=== PATIENT | female | born 1965 | race Caucasian/White ===

== ENCOUNTER → 2017-10-18 | Outpatient (CLI) | payer SELFPAY ==
--- NOTE | 2017-10-18 14:01 | RAD ---
Examination: Chest, PA and lateral views History: Preop Findings: Normal heart size, dilated aorta, clear lungs and pleural spaces. Impression: No acute chest disease. Configuration of thoracic aorta consistent with arteriosclerosis and/or hypertension. Reported By:
[2017-10-18 14:27] LABS: BILIRUBIN,URINE NEGATIVE (NEGATIVE); BLOOD/HEMOGLOBIN,URINE NEGATIVE (NEGATIVE); GLUCOSE, URINE NEGATIVE (NEGATIVE); KETONES,URINE NEGATIVE (NEGATIVE); LEUKOCYTE ESTERASE ,URINE 1+ (NEGATIVE); NITRITES,URINE NEGATIVE (NEGATIVE); PROTEIN,URINE NEGATIVE (NEGATIVE); UROBILINOGEN,URINE NORMAL (NORMAL)
[2017-10-18 14:37] LABS: APPEARANCE,URINE CLEAR (CLEAR); COLOR,URINE YELLOW (YELLOW)
[2017-10-18 14:38] LABS: BACTERIA,URINE 1+ /HPF (NEGATIVE); SQUAMOUS EPITHELIAL CELL,UR RARE /HPF (NEGATIVE)
[2017-10-18 14:53] LABS: BASOPHILS % (AUTO) 0.3 % (0.2-1.0); EOSINOPHILS # (AUTO) 0.1 x10^3/uL (0.0-0.2); EOSINOPHILS % (AUTO) 1.7 % (0.9-2.9); HEMATOCRIT 36.7 % (36.0-47.0); HEMOGLOBIN 12.5 g/dL (12.0-16.0); LYMPHOCYTES # (AUTO) 2.3 X10^3/uL (1.3-2.9); LYMPHOCYTES % (AUTO) 33.9 % (21.0-51.0); MEAN CORPUSCULAR HEMOGLOBIN 27.9 pg (27.0-34.0); MEAN CORPUSCULAR HGB CONC 33.9 g/dL (33.0-35.0); MEAN CORPUSCULAR VOLUME 82.4 fL (80.0-100.0); MEAN PLATELET VOLUME 8.9 fL (7.4-11.0); MONOCYTES # (AUTO) 0.7 x10^3/uL (0.3-0.8); MONOCYTES % (AUTO) 10.3 % (0.0-13.0); NEUTROPHILS # (AUTO) 3.7 x10^3/uL (2.2-4.8); NEUTROPHILS % (AUTO) 53.8 % (42.0-75.0); PLATELET COUNT 228 X10^3/uL (150.0-450.0); RED BLOOD COUNT 4.46 X10^6/uL (3.5-5.4); WHITE BLOOD COUNT 6.9 X10^3/uL (3.6-10.0)
[2017-10-18 15:00] LABS: ALANINE AMINOTRANSFERASE 25 Units/L (12-78); ALBUMIN 4.1 g/dL (3.4-5.0); ALKALINE PHOSPHATASE 92 Units/L (46-116); ASPARTATE AMINO TRANSFERASE 18 Units/L (15-37); BLOOD UREA NITROGEN 8 mg/dL (7-18); CALCIUM 8.8 mg/dL (8.5-10.1); CARBON DIOXIDE 30.6 mmol/L (21-32); CHLORIDE 104 mmol/L (98-107); SODIUM 141 mmol/L (136-145); TOTAL PROTEIN 7.8 g/dL (6.4-8.2); eGFR BLACK RACES > 60 (>60); eGFR NON BLACK RACES > 60 (>60)
[2017-10-18 15:45] LABS: ERYTHROCYTE SEDIMENTATION RATE 16 MM/HOUR (0-20)
== END ==
LOC: LAB 13:18
PROVIDERS: ATTEND Orthopaedic Surgery
DX: Z01.818 Encounter for other preprocedural examination (principal); Z79.899 Other long term (current) drug therapy; Z11.8 Encounter for screening for other infectious and parasitic diseases; Z01.811 Encounter for preprocedural respiratory examination; Z01.810 Encounter for preprocedural cardiovascular examination; D18.00 Hemangioma unspecified site
CPT/HCPCS: 36415; 71020; 80053; 81001; 85025; 85652; 86140; 87640; 87641; 93005; 93010

== ENCOUNTER 2017-10-22 07:48 | Day surgery (SDC) | payer SELFPAY ==
[~2017-10-22 07:48] MED LIST: ANCEF VIAL 1 GM ONE; D5 LR 1000 ML 1,000 ML IV ONE
[2017-10-22] MEDS ORDERED: MARCAINE 0.25% INJ ONE (08:14)
[2017-10-22] MEDS ORDERED: XYLOCAINE 1 % (PLAIN) ONE (08:14)
[2017-10-22] MEDS ORDERED: NS IRRIGATION 1000 ML 1,000 ML with BACITRACIN VIAL 50,000 UNT IR ONE ×2 (09:06)
[2017-10-22] MEDS ORDERED: DIPRIVAN VIAL ONE (09:10)
[2017-10-22] MEDS ORDERED: VERSED ONE (09:10)
[2017-10-22] MEDS ORDERED: BACTROBAN OINT ONE (09:12)
[2017-10-22] MEDS ORDERED: ZOFRAN INJ 4 MG VIAL IVP PRN (09:29)
[2017-10-22] MEDS ORDERED: PERCOCET TAB 5/325 MG PO PRN (09:29)
[2017-10-22 09:58] VITALS: BP 148/74
--- NOTE | 2017-10-23 13:32 | OR.GENERIC ---
Post-Op Note Generic - Post-Op Note Operative Report: preoperative nakkoaifi-culab-zqsp ring fingerrecurrent glomus tumor Postoperative zxroyxxoz-ouswc-andj ring finger recurrent glomus tumor Procedure- permanent removal of nail bed and its metrix and excision of the glomus tumor. indication-patient is a 52-year-old female who presents to the office with recurrent pain in the RIGHT hand ring finger. 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 She reports that she noticed that she got some reliefafter the initial removal by . within the next few months she noticed the pain area.. She notes she's been having to deal with the pain for many months now. She reports that when the needle was removed she noticed good pain relief. on examination she had a very tender spot and a slight bluish discoloration underneath the nail bed of the RIGHT hand ring finger. Also noted was as part of near the proximal nail fold radially.Currently she does not have any insurance and would want want to proceed with any further investigations.reatment discussions were done. Patient wanted to proceed with the surgical intervention. She also wanted a permanent removal of nail plate with the Metrix. She was posted for surgery. Complications including but not limited to infection, neurovascular damage, and position, revision surgery, recurrence, persistence of pain and stiffness review the complications which were discussed with her. She understood and will place her same. Patient was seen in the preoperative holding area. Limb was marked. She got digital block. Patient would'v proper antibiotic. Consent was again revisited. Procedure-patient was brought to the operating room and placed supine on the operating table. RIGHT limb was placed in the him support. Patient was slightly sedated with IV medications. Her RIGHT limb prepped and draped. An digital tourniquet was used at the base of the RIGHT ring finger. 2 incisions on either side of the proximal nail fold were placed to which measures about 4 mm. Dissection carried down to the deep tissue to expose the matrix. Dissection carried down proximally to the extensor tendon exposed. Exploration further treatment to respond to home the radial side was conducted. Neurovascular bundle was identified and no swelling noted in the region either in the neurovascular bundle or soft tissue or any of the bone and bony structures. At this time the [place] was passed from distally underneath the nail detaching the nail from its bed and was carried down proximally and resistance was relieved from the 20th of the matrix. The nail was removed in toto without any complications. At this time the matrix was surgically removed with a plate and the distal phalanx was exposed. At this time Marcaine cautery was used in a spray mode to cauterized all the matrix. n incision was made through the nailbed distally corresponding to the small bluish discoloration. Dissection carried down to the bone to expose the very small insignificant glomus tumor swelling. It was excised in toto. t was sent for histopathology to examination. Again cauterized to get hemostasis and also get a clear margin. Tourniquet deflated at this time. Thorough irrigation was done. Multiple sutures were placed on either side with a 3-0 nylon. Sterile dressing was placed. Patient was awoken about the surgery. Patient was discharged to the PACU in stable condition. Family was briefed about the surgery. Patient was sent home with instructions to keep the dressing clean and dry. Postoperative pain management medications were given to her. Follow up as advised.
== END 2017-10-22 09:57 | disposition home or self-care (01) ==
LOC: SURG1 07:48
PROVIDERS: ATTEND Orthopaedic Surgery
PROC: 0JBJ0ZZ Excision of Right Hand Subcutaneous Tissue and Fascia, Open Approach (ICD-10-PCS; 2017-10-22)
PROC: 0HTQXZZ Resection of Finger Nail, External Approach (ICD-10-PCS; principal; 2017-10-22 08:30)
DX: D18.09 Hemangioma of other sites (principal)
CPT/HCPCS: S0020; J0690; J2001; J2250; J3490; J7120